=== PATIENT | female | born 2005 | race Caucasian/White ===

== ENCOUNTER 2024-04-25 01:48 | Emergency (ER) | payer MEDICAID, SELFPAY ==
[2024-04-25 01:51] VITALS: BP 103/56; PULSE 80; RESP 16; TEMP 36.8; O2SAT 98; BMI 21.5
[2024-04-25 02:17] LABS: IDNOW Serial# 08D9AD1C; Strep A Nucleic Acid Negative (Negative)
[2024-04-25 02:47] LABS: Influenza A PCR NEGATIVE (Negative); Influenza B PCR NEGATIVE (Negative); Resp Syncy Virus RNA Qual PCR NEGATIVE (Negative); SARS COV2 PCR INHOUSE NEGATIVE (Negative)
[2024-04-25 05:24] VITALS: O2SAT 100
--- NOTE | 2024-04-25 05:25 | PC.NURSE ---
pt in room, sleeping on stretcher comfortably, respirations even and unlabored - waiting to be seen by ED provider. mom at bedside.
--- NOTE | 2024-04-25 06:23 | ED.GENADULT ---
HPI - General Adult General Chief complaint: Upper Respiratory Symptoms Stated complaint: coughing / think something is stuck in throat Time Seen by Provider: 04/25/24 06:19 Source: patient Mode of arrival: ambulatory Limitations: no limitations History of Present Illness ED Provider: Stephon Montanez NP [facility] narrative: Patient is a 18-year-old female presenting to the emergency department with complaint of throat irritation and nonproductive cough for the past 2 days. States she feels as though there is dust in her throat and this is causing her cough. States that she feels ?something moving to submandibular area. Denies fevers, chest pain, dyspnea, ear pain. Has been gargling with warm salt water with little change in symptoms. MD complaint: throat irritation Onset (ago): day(s) Associated symptoms: denies other symptoms Treatments prior to arrival: other Related Data Previous Rx's ?Medication ?Instructions ?Recorded benzonatate 100 mg capsule 100 mg PO TID PRN cough #14 caps 04/25/24 cetirizine 10 mg tablet 10 mg PO DAILY #14 tabs 04/25/24 Allergies Allergy/AdvReac Type Severity Reaction Status Date / Time No Known Allergies Allergy Verified 04/25/24 01:53 Review of Systems Review of Systems: As per HPI. Yes all other systems are reviewed and are negative Constitutional: Constitutional: Reports as per HPI [facility] Social History Social History Smoked in Last 30 Days: No Use of substances other than those prescribed or required for medical reasons: No Advance Directives: No Advance Directives Information Provided: No Patient : No Physical Exam ED Vital Signs: Vital Signs - 24 hr 04/25/24 01:51 04/25/24 05:24 Temperature 98.3 F Pulse Rate 80 Respiratory Rate 16 Blood Pressure 103/56 L Pulse Oximetry 98 100 Oxygen Delivery Method Room Air Room Air BMI result Body Mass Index 21.5 Vital signs have been reviewed and appear to be correct. Blood pressure normal. Heart rate normal. Respiratory rate normal. Temperature normal. Oxygen saturation normal. Const General: cooperative, healthy appearing and no acute distress Orientation/consciousness: oriented to person, oriented to place, oriented to time and patient oriented x3 Limitations: no limitations HENMT Head: Yes normocephalic and Yes atraumatic Ears: external ears normal, TM's normal bilaterally and EAC's normal General nose exam: Normal external nose present Face and sinus: Yes face symmetric Mouth: Normal oral and palatal mucosa present, lip normal, tongue normal, Normal salivary glands and ducts present, oropharynx normal, moist mucous membranes, no drooling and no trismus Throat: Yes tonsils normal (tonsil calculi present bilaterally, no erythema, edema), Yes uvula midline, No peritonsillar mass and No uvular edema Eyes Pupils: Equal, round and reactive pupils present Neck Neck: Yes normal visual inspection, Yes full ROM, Yes no lymphadenopathy, Yes trachea midline, Yes supple and No anterior neck swelling Thyroid: Thyroid normal Resp Effort & Inspection: normal respiratory effort and able to speak in complete sentences Auscultation: clear to auscultation bilaterally Cardio Rate: regular rate Rhythm: regular rhythm Heart sounds: S1 normal heart sound present and S2 normal heart sound present GI Palpation (GI): Soft to palpation and nontender Auscultation: normoactive bowel sounds General: Yes no CVA tenderness Back/Spine/Pelvis Back: no CVA tenderness Skin General skin exam: elasticity normal and turgor normal Neuro General: oriented to person, oriented to place, oriented to time, patient oriented x3, moves all extremities, no focal motor deficits and CN's II-XI intact bilaterally Cranial nerves: Yes Equal, round and reactive pupils present Cognition (Neuro): normal cognition Extrem General: Yes full ROM, Yes no pedal edema and Yes no calf tenderness Psych Mental Status: mental status grossly normal Affect: normal affect Thought process: Normal thought process present Medical Decision Making Medical Decision Making MDM Narrative: Patient is a 18-year-old female presenting to the emergency department with complaint of throat irritation and nonproductive cough for the past 2 days. On exam patient is awake, A+Ox3, VS WNL, afebrile, normal neurological exam without focal deficits, physical exam findings as above. Given reported symptoms and physical exam findings, initial differential includes strep pharyngitis, viral illness, covid, flu, tonsiloliths, sialadenitis. Swabs for flu, covid, rsv, and strep all negative. Physical exam unremarkable, no not suspect [employer]PA. Discussed with patient that symptoms likely due to seasonal allergies, possibly due to sialadenitis. Will send prescriptions for benzonatate, cetirizine. Advised patient to continue gargling with warm salt water and use sour candies to increase salivation. Instructed patient to follow up with PCP. Will refer to ENT for ongoing symptoms. Patient verbalized understanding of plan. Differential Diagnosis Differential Diagnoses: The differential diagnosis associated with the presentation includes As per [facility]. Lab Data [facility] Lab Attestation statement: I reviewed the patient's lab results. As per [facility]. Labs: Lab Results 04/25/24 Range/Units 02:06 Influenza Type A (PCR) NEGATIVE (Negative) Influenza Type B (PCR) NEGATIVE (Negative) RSV RNA Qual (PCR) NEGATIVE (Negative) SARS-CoV-2 RNA (RT-PCR) NEGATIVE (Negative) S. pyogenes GrpA KAYCE Negative (Negative) External Record Review External record reviewed: Inpatient record, Office record and Outpatient record Prescription Management I considered prescription management with: Other Discharge Plan Discharge Clinical Impression: Viral infection, Tonsillar calculus Patient Disposition: Home, Self-Care Instructions: Sialoadenitis (ED), Viral Syndrome (ED) Additional Instructions: You were evaluated in the emergency department today for throat irritation and coughing. This is likely due to a viral illness, seasonal allergies, or possibly a blockage of your salivary gland called sialadenitis. You are being prescribed cough medicine, as well as a daily allergy medication. We also recommend that your try sucking on sour candies such as lemonheads. Please follow up with your primary care provider. Return to the emergency department if you develop increased swelling to your throat, difficulty swallowing your own saliva, fever, or any other concerning symptoms. If your symptoms persist, you can follow up with ENT. Call their office to schedule an appointment. Prescriptions: New cetirizine 10 mg tablet 10 mg PO DAILY Qty: 14 0RF benzonatate 100 mg capsule 100 mg PO TID PRN (Reason: cough) Qty: 14 0RF Referrals: Kenyon Arriola [Physician] - Stand Alone Forms: Work/School Release Print Language: French
[2024-04-25 06:40] VITALS: BP 101/66; PULSE 73; RESP 16; TEMP 36.7; O2SAT 99
== END 2024-04-25 06:42 | disposition home or self-care (01) ==
PROVIDERS: Emergency Provider Emergency Medicine Emergency Medical Services
DX: B34.9 Viral infection, unspecified (principal); J35.8 Other chronic diseases of tonsils and adenoids
CPT/HCPCS: 0241U; 87651; 99283; 99284